=== PATIENT | female | born 1955 | race Caucasian/White ===

== ENCOUNTER 2017-02-14 09:10 | Day surgery (SDC) | payer OTHER ==
[~2017-02-14] VITALS: Ht 165.1 cm; Wt 97.0 kg
[2017-02-14] MEDS ORDERED: JANUVIA 100MG100 MG PO (09:44)
[2017-02-14] MEDS ORDERED: AMARYL4 MG PO (09:45)
[2017-02-14] MEDS ORDERED: FARXIGA10 PO (09:45)
[2017-02-14] MEDS ORDERED: PRILOSEC 20MG20 MG PO (09:46)
[2017-02-14] MEDS ORDERED: DIOVAN 160MG160 MG PO (09:46)
[2017-02-14] MEDS ORDERED: BENADRYL50 MG PO (09:46)
[2017-02-14] MEDS ORDERED: TYLENOL PM EXTR1 TA1 PO (09:47)
[2017-02-14] MEDS ORDERED: MOTRIN 200200 MG/TAB PO (09:47)
[2017-02-14 10:00] VITALS: BP 128/86; PULSE 84; TEMP 97.8
[2017-02-14 11:45] VITALS: BP 100/62; PULSE 79; TEMP 97.8
[2017-02-14 12:00] VITALS: BP 103/55; PULSE 82
[2017-02-14 12:15] VITALS: BP 98/67; PULSE 86
== END 2017-02-14 12:35 | disposition home or self-care (01) ==
LOC: SDCO 09:10
DX: Z12.11 Encounter for screening for malignant neoplasm of colon (principal); E11.9 Type 2 diabetes mellitus without complications; I10 Essential (primary) hypertension
CPT/HCPCS: J2250; J3010; J7030

== ENCOUNTER → 2018-02-16 | Outpatient (CLI) | payer BC ==
[~2018-02-16] MED LIST: AMARYL4 MG PO; BENADRYL50 MG PO; DIOVAN 160MG160 MG PO; FARXIGA10 PO; JANUVIA 100MG100 MG PO; MOTRIN 200200 MG/TAB PO; PRILOSEC 20MG20 MG PO; TYLENOL PM EXTR1 TA1 PO
== END ==
LOC: MC.RAD 09:19
DX: Z12.31 Encounter for screening mammogram for malignant neoplasm of breast (principal)

== ENCOUNTER → 2019-09-10 | Outpatient (CLI) | payer BC | LOC: MC.RAD 10:23 | DX: Z12.31 Encounter for screening mammogram for malignant neoplasm of breast (principal) ==

== ENCOUNTER → 2020-11-07 | Outpatient (CLI) | payer BC | LOC: MC.RAD 09:14 | DX: Z12.31 Encounter for screening mammogram for malignant neoplasm of breast (principal) ==